=== PATIENT | female | born 1975 ===

== ENCOUNTER 2017-04-03 10:20 | Outpatient (CLI) | payer OTHER | END 2017-04-03 10:21 | disposition home or self-care (01) | LOC: BICRAD 10:20 | PROVIDERS: ATTEND Family Medicine | DX: M54.5 Low back pain (principal); G89.29 Other chronic pain; R20.0 Anesthesia of skin; M47.816 Spondylosis without myelopathy or radiculopathy, lumbar region | CPT/HCPCS: 72110 ==